=== PATIENT | female | born 1965 | race Caucasian/White ===

== ENCOUNTER → 2016-07-01 | Outpatient (CLI) | payer SELFPAY ==
--- NOTE | 2016-07-02 09:36 | MR ---
EXAMINATION: MRI of the left shoulder HISTORY: Injury COMPARISON: Radiographs dated 06/19/2016 TECHNIQUE: Multiplanar and multisequence images obtained of the left shoulder without contrast. FINDINGS: The acromion is flat. Moderate acromioclavicular osteoarthritic changes are noted. There i s a trace subacromial fluid. There is a tiny articular sided partial-thickness tear of the distal sweet praspinatus tendon. The infraspinatus and teres minor tendons appear intact. The long head biceps te ndon is present within the bicipital groove. The subscapularis tendon appears intact. Mild subcortic al cystic changes noted at the rotator cuff insertion. The articular surfaces are preserved. No susp icious bone marrow signal changes. The inferior glenohumeral ligament appears intact. No joint effus ion. IMPRESSION: 1. Tiny partial-thickness tear of the distal supraspinatus tendon. 2. Mild supraspinatus and subscapularis tendinopathy. 3. Moderate acromioclavicular osteoarthritic changes.
== END ==
LOC: MW.MRI 14:13
PROVIDERS: ATTEND Physician Assistant
DX: S49.92XA Unspecified injury of left shoulder and upper arm, initial encounter (principal)
CPT/HCPCS: 73221-26-LT; 73221-LT

== ENCOUNTER 2017-12-18 11:51 | Emergency (ER) | payer SELFPAY ==
[2017-12-18] MEDS ORDERED: Sodium Chloride 0.9% 1,000 ML IV ONE (12:14)
[2017-12-18] MEDS ORDERED: Sodium Chloride 0.9% 2.5 ML Syringe FLUSH PRN (12:14)
[2017-12-18] MEDS ORDERED: Sodium Chloride 0.9% 10 ML Syringe FLUSH PRN (12:14)
--- NOTE | 2017-12-18 12:35 | EDM.PDOC ---
ED HPI GENERAL MEDICAL PROBLEM - General Chief Complaint: Abdominal Pain Stated Complaint: PT SPOKE TO NURSE Time Seen by Provider: 12/18/17 12:29 Source of Information: Reports: Patient History Limitations: Reports: No Limitations - History of Present Illness INITIAL COMMENTS - FREE TEXT/NARRATIVE: HISTORY AND PHYSICAL: History of present illness: She is a 52-year-old female here with complaint of upper abdominal pain x 3 days. She reports that she had a knee replacement surgery 3 weeks ago. She was given hydrocodone, aspirin, and celebrex post-op. She believes these were upsetting her stomach so she stopped them 2 days ago. She reports she gets a "bubbling" sensation in her chest and throat and gets an aluminum taste in her mouth. She has had multiple episodes of diarrhea x 3 days. States that her stools are very dark but no jairo blood. Review of systems: As per history of present illness and below otherwise all systems reviewed and negative. Past medical history: As per history of present illness and as reviewed below otherwise noncontributory. Surgical history: As per history of present illness and as reviewed below otherwise noncontributory. Social history: No reported history of drug or alcohol abuse. Family history: As per history of present illness and as reviewed below otherwise noncontributory. Physical exam: General: patient sitting comfortably in no acute distress HEENT: Atraumatic, normocephalic, pupils reactive, negative for conjunctival pallor or scleral icterus, mucous membranes moist, throat clear, neck supple, nontender, trachea midline. Lungs: Clear to auscultation, breath sounds equal bilaterally, chest nontender. Heart: S1S2, regular, negative for clicks, rubs, or JVD. Abdomen: Mild epigastric tenderness on exam Soft, nondistended. Negative for masses or hepatosplenomegaly. Negative for costovertebral tenderness. Pelvis: Stable nontender. Genitourinary: Deferred. Rectal: Deferred. Extremities: Atraumatic, negative for cords or calf pain. Neurovascular unremarkable. Neuro: Awake, alert, oriented. Cranial nerves II through XII unremarkable. Cerebellum unremarkable. Motor and sensory unremarkable throughout. Exam nonfocal. Notes: Patient reports improvement in pain with famotidine and zofran Diagnostics: CBC, CMP, troponin, amylase, lipase CT abdomen/pelvis w/ contrast Hemoccult - negative Therapeutics: 1 L normal saline 2mg Morphine IV 20mg Famotidine IV 4mg Zofran IV Impression: Acute Gastritis Plan: 1. Take prilosec daily and zofran as needed for nausea 2. Discontinue celebrex, you may continue aspirin for DVT prophylaxis and hydrocodone for pain. No OTC NSAIDs such as motrin/ibuprofen 3. Follow up with primary care provider 4. Return to ED as needed as discussed Definitive disposition and diagnosis as appropriate pending reevaluation and review of above. Upper Abdomen Pain Score (Numeric/FACES): 6 - Related Data Allergies Allergy/AdvReac Type Severity Reaction Status Date / Time banana Allergy Airway Verified 12/18/17 12:08 Tightness cefaclor Allergy Hives Verified 12/18/17 12:08 codeine Allergy Hives Verified 12/18/17 12:08 divalproex sodium Allergy Itching Verified 12/18/17 12:08 Latex, Natural Rubber Allergy Hives Verified 12/18/17 12:08 loracarbef [From Lorabid] Allergy Hives Verified 12/18/17 12:08 Penicillins Allergy Anaphylactic Verified 12/18/17 12:08 Shock trimethobenzamide HCl Allergy Hives Verified 12/18/17 12:08 [From Tigan] [place] anticeptic powder Allergy Hives Uncoded 12/18/17 12:08 Home Meds: Home Meds Escitalopram Oxalate 10 mg PO DAILY 07/11/15 [History] LORazepam 0.5 mg PO TID PRN 07/11/15 [History] Oxymetazoline [Afrin Original 0.05% Nasal [place]] 1 spray NASBOTH ASDIRECTED PRN 07/11/15 [History] Cetirizine [ZyrTEC] 10 mg PO ASDIRECTED PRN 04/16/16 [History] Promethazine HCl 25 mg PO ASDIRECTED PRN 04/16/16 [History] Omeprazole 20 mg PO BIDAC #60 cap.cr 04/19/16 [Rx] Rizatriptan Benzoate [Rizatriptan] 5 mg PO ASDIRECTED PRN 11/19/17 [History] Topiramate 25 mg PO BID 11/19/17 [History] Omeprazole 20 mg PO DAILY #20 cap.sr 12/18/17 [Rx] Ondansetron [Zofran ODT] 4 mg PO TID PRN #10 tab.dis 12/18/17 [Rx] Past Medical History HEENT History: Reports: Allergic Rhinitis, Other (See Below) Other HEENT History: wears glasses Cardiovascular History: Reports: Other (See Below) Other Cardiovascular History: states has had palpitations Respiratory History: Reports: Asthma Gastrointestinal History: Reports: GERD, Irritable Bowel Syndrome Genitourinary History: Reports: None ASSISTANT DIRECTOR OF NURSING History: Reports: Musculoskeletal History: Reports: Fracture, Fibromyalgia, Osteoarthritis Other Musculoskeletal History: hx of fx ribs, wrist and fingers - no hardware Neurological History: Reports: Concussion, Migraines, Other (See Below) Other Neuro History: hx of motion sickness Psychiatric History: Reports: Anxiety, Depression, Panic Attack Other Psychiatric History: panic disorder Endocrine/Metabolic History: Reports: Obesity/BMI 30+ Hematologic History: Reports: Anemia Immunologic History: Reports: None Other Immunologic History: lupus Oncologic (Cancer) History: Reports: None Dermatologic History: Reports: Other (See Below) Other Dermatologic History: rash on face - Infectious Disease History Infectious Disease History: Reports: None - Past Surgical History HEENT Surgical History: Reports: Adenoidectomy, Oral Surgery, Tonsillectomy Other HEENT Surgeries/Procedures: wisdom teeth removed GI Surgical History: Reports: Appendectomy, Cholecystectomy Female Surgical History: Reports: Section Other Female Surgeries/Procedures: x3 Neurological Surgical History: Reports: C-Spine, Vertebroplasty Other Neurological Surgeries/Procedures: states has "4 donor vertebrate" in neck Musculoskeletal Surgical History: Reports: Arthroscopic Knee, Knee Replacement, Other (See Below) Other Musculoskeletal Surgeries/Procedures:: hx of left knee arthroscopy and right ACL repair Social & Family History - Family History Family Medical History: Noncontributory - Tobacco Use Smoking Status *Q: Never Smoker Second Hand Smoke Exposure: No - Caffeine Use Caffeine Use: Reports: None - Recreational Drug Use Recreational Drug Use: No ED ROS GENERAL - Review of Systems Review Of Systems: ROS reveals no pertinent complaints other than HPI. ED EXAM, GI/ABD - Physical Exam Exam: See Below (see dictation) Course - Vital Signs Last Recorded V/S: Last Vital Signs Temp 36.1 C 12/18/17 12:01 Pulse 79 12/18/17 12:01 Resp 18 12/18/17 12:01 BP 132/70 12/18/17 12:01 Pulse Ox 99 12/18/17 12:01 - Orders/Labs/Meds Orders: Active Orders 24 hr Category Date Time Status Abdomen Pelvis wo Cont [CT] Stat Exams 12/18/17 12:28 Taken HCG QUALITATIVE,URINE [URCHEM] Stat Lab 12/18/17 13:09 Ordered UA W/MICROSCOPIC [URIN] Stat Lab 12/18/17 13:09 Ordered Sodium Chloride 0.9% [Saline Flush] Med 12/18/17 12:14 Active 10 ml FLUSH ASDIRECTED PRN Sodium Chloride 0.9% [Saline Flush] Med 12/18/17 12:14 Active 2.5 ml FLUSH ASDIRECTED PRN Saline Lock Insert [OM.PC] Stat Oth 12/18/17 12:14 Ordered Medication Orders Sodium Chloride (Saline Flush) 10 ml FLUSH ASDIRECTED PRN PRN Reason: Keep Vein Open Sodium Chloride (Saline Flush) 2.5 ml FLUSH ASDIRECTED PRN PRN Reason: Keep Vein Open Labs: Laboratory Tests 12/18/17 12/18/17 12/18/17 Range/Units 12:35 12:35 12:35 WBC 9.16 (4.0-11.0) K/uL RBC 4.27 L (4.30-5.90) M/uL Hgb 12.7 (12.0-16.0) g/dL Hct 38.3 (36.0-46.0) % MCV 89.7 (80.0-98.0) fL MCH 29.7 (27.0-32.0) pg MCHC 33.2 (31.0-37.0) g/dL RDW Std Deviation 44.4 (28.0-62.0) fl RDW Coeff of Pao 14 (11.0-15.0) % Plt Count 523 H (150-400) K/uL MPV 9.00 (7.40-12.00) fL Neut % (Auto) 67.6 (48.0-80.0) % Lymph % (Auto) 24.6 (16.0-40.0) % [place] % (Auto) 6.6 (0.0-15.0) % Eos % (Auto) 0.9 (0.0-7.0) % Baso % (Auto) 0.3 (0.0-1.5) % Neut # (Auto) 6.2 H (1.4-5.7) K/uL Lymph # (Auto) 2.3 (0.6-2.4) K/uL [place] # (Auto) 0.6 (0.0-0.8) K/uL Eos # (Auto) 0.1 (0.0-0.7) K/uL Baso # (Auto) 0.0 (0.0-0.1) K/uL Nucleated RBC % 0.0 /100WBC Nucleated RBCs # 0 K/uL INR 0.98 Sodium 141 (136-145) mmol/L Potassium 3.3 L (3.5-5.1) mmol/L Chloride 105 (98-107) mmol/L Carbon Dioxide 22.4 (21.0-32.0) mmol/L BUN 10 (7.0-18.0) mg/dL Creatinine 0.9 (0.6-1.0) mg/dL Est Cr Clr Drug Dosing 64.58 mL/min Estimated GFR (MDRD) > 60.0 ml/min Glucose 120 H (74-106) mg/dL Calcium 10.0 (8.5-10.1) mg/dL Total Bilirubin 0.4 (0.2-1.0) mg/dL AST 15 (15-37) IU/L ALT 24 (14-63) IU/L Alkaline Phosphatase 107 (46-116) U/L Troponin I < 0.050 (0.000-0.056) ng/mL Total Protein 8.0 (6.4-8.2) g/dL Albumin 4.0 (3.4-5.0) g/dL Globulin 4.0 H (2.0-3.5) g/dL Albumin/Globulin Ratio 1.0 L (1.3-2.8) Amylase 38 (25-115) U/L Lipase 187 (73-393) U/L Urine Color Urine Appearance Urine pH (5.0-8.0) Ur Specific [place] (1.001-1.035) Urine Protein (NEGATIVE) mg/dL Urine Glucose (UA) (NEGATIVE) mg/dL Urine Ketones (NEGATIVE) mg/dL Urine Occult Blood (NEGATIVE) Urine Nitrite (NEGATIVE) Urine Bilirubin (NEGATIVE) Urine Urobilinogen (<2.0) EU/dL Ur Leukocyte Esterase (NEGATIVE) Urine RBC (0-2/HPF) Urine WBC (0-5/HPF) Ur Epithelial Cells (NONE-FEW) Urine Bacteria (NEGATIVE) Urine HCG, Qual (NEGATIVE) 12/18/17 12/18/17 Range/Units 13:09 13:09 WBC (4.0-11.0) K/uL RBC (4.30-5.90) M/uL Hgb (12.0-16.0) g/dL Hct (36.0-46.0) % MCV (80.0-98.0) fL MCH (27.0-32.0) pg MCHC (31.0-37.0) g/dL RDW Std Deviation (28.0-62.0) fl RDW Coeff of Pao (11.0-15.0) % Plt Count (150-400) K/uL MPV (7.40-12.00) fL Neut % (Auto) (48.0-80.0) % Lymph % (Auto) (16.0-40.0) % [place] % (Auto) (0.0-15.0) % Eos % (Auto) (0.0-7.0) % Baso % (Auto) (0.0-1.5) % Neut # (Auto) (1.4-5.7) K/uL Lymph # (Auto) (0.6-2.4) K/uL [place] # (Auto) (0.0-0.8) K/uL Eos # (Auto) (0.0-0.7) K/uL Baso # (Auto) (0.0-0.1) K/uL Nucleated RBC % /100WBC Nucleated RBCs # K/uL INR Sodium (136-145) mmol/L Potassium (3.5-5.1) mmol/L Chloride (98-107) mmol/L Carbon Dioxide (21.0-32.0) mmol/L BUN (7.0-18.0) mg/dL Creatinine (0.6-1.0) mg/dL Est Cr Clr Drug Dosing mL/min Estimated GFR (MDRD) ml/min Glucose (74-106) mg/dL Calcium (8.5-10.1) mg/dL Total Bilirubin (0.2-1.0) mg/dL AST (15-37) IU/L ALT (14-63) IU/L Alkaline Phosphatase (46-116) U/L Troponin I (0.000-0.056) ng/mL Total Protein (6.4-8.2) g/dL Albumin (3.4-5.0) g/dL Globulin (2.0-3.5) g/dL Albumin/Globulin Ratio (1.3-2.8) Amylase (25-115) U/L Lipase (73-393) U/L Urine Color YELLOW Urine Appearance CLEAR Urine pH 6.5 (5.0-8.0) Ur Specific [place] <= 1.005 (1.001-1.035) Urine Protein NEGATIVE (NEGATIVE) mg/dL Urine Glucose (UA) NEGATIVE (NEGATIVE) mg/dL Urine Ketones NEGATIVE (NEGATIVE) mg/dL Urine Occult Blood TRACE-INTACT (NEGATIVE) Urine Nitrite NEGATIVE (NEGATIVE) Urine Bilirubin NEGATIVE (NEGATIVE) Urine Urobilinogen 0.2 (<2.0) EU/dL Ur Leukocyte Esterase NEGATIVE (NEGATIVE) Urine RBC 0-2 (0-2/HPF) Urine WBC 0-1 (0-5/HPF) Ur Epithelial Cells RARE (NONE-FEW) Urine Bacteria RARE (NEGATIVE) Urine HCG, Qual NEGATIVE (NEGATIVE) Meds: Medications Generic Name Dose Route Start Last Admin Trade Name Norma PRN Reason Stop Dose Admin Sodium Chloride 10 ml 12/18/17 12:14 Saline Flush FLUSH ASDIRECTED PRN Keep Vein Open Sodium Chloride 2.5 ml 12/18/17 12:14 Saline Flush FLUSH ASDIRECTED PRN Keep Vein Open Discontinued Medications Generic Name Dose Route Start Last Admin Trade Name Norma PRN Reason Stop Dose Admin Famotidine 20 mg 12/18/17 14:46 12/18/17 15:14 Pepcid IVPUSH 12/18/17 14:47 20 mg ONETIME ONE Administration Sodium Chloride 1,000 mls @ 999 mls/hr 12/18/17 12:14 12/18/17 12:48 Normal Saline IV 12/18/17 13:14 999 mls/hr STAT ONE Administration Morphine Sulfate 2 mg 12/18/17 12:43 12/18/17 12:49 Morphine IVPUSH 12/18/17 12:44 2 mg ONETIME ONE Administration Ondansetron HCl 4 mg 12/18/17 14:46 12/18/17 15:14 Zofran IVPUSH 12/18/17 14:47 4 mg ONETIME ONE Administration Departure - Departure Time of Disposition: 15:41 Disposition: Home, Self-Care 01 Condition: Good Clinical Impression: Gastritis - Discharge Information Prescriptions: Omeprazole 20 mg PO DAILY #20 cap.sr Ondansetron [Zofran ODT] 4 mg PO TID PRN #10 tab.dis PRN Reason: Nausea/Vomiting Referrals: PCP,None [Primary Care Provider] - Forms: ED Department Discharge Additional Instructions: The following information is given to patients seen in the emergency department who are being discharged to home. This information is to outline your options for follow-up care. We provide all patients seen in our emergency department with a follow-up referral. The need for follow-up, as well as the timing and circumstances, are variable depending upon the specifics of your emergency department visit. If you don't have a primary care physician on staff, we will provide you with a referral. We always advise you to contact your personal physician following an emergency department visit to inform them of the circumstance of the visit and for follow-up with them and/or the need for any referrals to a consulting specialist. The emergency department will also refer you to a specialist when appropriate. This referral assures that you have the opportunity for follow-up care with a specialist. All of these measure are taken in an effort to provide you with optimal care, which includes your follow-up. Under all circumstances we always encourage you to contact your private physician who remains a resource for coordinating your care. When calling for follow-up care, please make the office aware that this follow-up is from your recent emergency room visit. If for any reason you are refused follow-up, please contact the [facility] Emergency Department at and asked to speak to the emergency department charge nurse. [facility] [address] [place] [id number] [address] 1. Take prilosec daily and zofran as needed for nausea 2. Discontinue celebrex, you may continue aspirin for DVT prophylaxis and hydrocodone for pain. No OTC NSAIDs such as motrin/ibuprofen 3. Follow up with primary care provider 4. Return to ED as needed as discussed - My Orders Last 24 Hours: My Active Orders 12/18/17 12:14 Sodium Chloride 0.9% [Saline Flush] 10 ml FLUSH ASDIRECTED PRN Sodium Chloride 0.9% [Saline Flush] 2.5 ml FLUSH ASDIRECTED PRN Saline Lock Insert [OM.PC] Stat 12/18/17 12:28 Abdomen Pelvis wo Cont [CT] Stat 12/18/17 13:09 HCG QUALITATIVE,URINE [URCHEM] Stat UA W/MICROSCOPIC [URIN] Stat - Assessment/Plan Last 24 Hours: My Active Orders 12/18/17 12:14 Sodium Chloride 0.9% [Saline Flush] 10 ml FLUSH ASDIRECTED PRN Sodium Chloride 0.9% [Saline Flush] 2.5 ml FLUSH ASDIRECTED PRN Saline Lock Insert [OM.PC] Stat 12/18/17 12:28 Abdomen Pelvis wo Cont [CT] Stat 12/18/17 13:09 HCG QUALITATIVE,URINE [URCHEM] Stat UA W/MICROSCOPIC [URIN] Stat
[2017-12-18] MEDS ORDERED: Morphine 2 MG/ML Syringe IVPUSH ONE (12:43)
[2017-12-18 13:29] LABS: CHLORIDE,CL 105 mmol/L (98-107); SODIUM,NA 141 mmol/L (136-145)
[2017-12-18] MEDS ORDERED: Ondansetron 4 MG/2 ML SDV IVPUSH ONE (14:46)
[2017-12-18] MEDS ORDERED: Famotidine 20 MG/2 ML SDV IVPUSH ONE (14:46)
[2017-12-18 16:58] VITALS: BP 123/64
--- NOTE | 2017-12-19 19:20 | CT ---
EXAM DATE: 12/18/17 PATIENT'S AGE: 52 Patient: ROMAINE JERRY Facility: [place], [place] Site . Site : [id number] Study: CT Abdomen/Pelvis [id number]/[id number] 2:02:24 PM Ordering Physician: Doctor Bennett Final Report: INDICATION: Abdominal pain. TECHNIQUE: Contiguous axial images were obtained from the domes of the diaphragm through the pubic symphysis. Intravenous and oral contrast were not administered. 3D rendering, including image post processing was performed on an independent workstation. COMPARISON: CT abdomen pelvis 04/26/2016. FINDINGS: The visualized lower lungs are unremarkable. The unenhanced liver, spleen, pancreas are unremarkable. Left adrenal adenoma is again noted. Right adrenal gland is unremarkable. The unenhanced kidneys, ureters and urinary bladder unremarkable. There is no obstructive uropathy. The uterus and adnexa are unremarkable. There is no abdominal or pelvic ascites. Few scattered diverticular noted in the colon without CT evidence of diverticulitis. The appendix is not identified. There is no CT evidence of appendicitis. IMPRESSION: 1. No acute abnormality on CT abdomen pelvis. 2. Diverticulosis without CT evidence of diverticulitis. 3. Stable left adrenal adenoma. Please note that all CT scans at this facility use dose modulation, iterative reconstruction, and/or weight-based dosing when appropriate to reduce radiation dose to as low as reasonably achievable. Dictated by Peg Garber MD @ Dec 18 2017 2:26PM (Electronic Signature) Report Signed by Proxy. CORKY
== END 2017-12-18 15:45 | disposition home or self-care (01) ==
LOC: MW.ED 11:51
DX: K29.00 Acute gastritis without bleeding (principal); K21.9 Gastro-esophageal reflux disease without esophagitis; F41.9 Anxiety disorder, unspecified; F32.9 Major depressive disorder, single episode, unspecified; Z79.899 Other long term (current) drug therapy; Z88.0 Allergy status to penicillin; Z88.8 Allergy status to other drugs, medicaments and biological substances; Z91.018 Allergy to other foods; Z91.040 Latex allergy status
CPT/HCPCS: 36415; 74176; 80053; 81001; 81025; 82150; 83690; 84484; 85025; 85610; 96361; 96374; 96375; 99284; J2270; J2405; J3490; J7040; 99283

== ENCOUNTER 2018-05-24 13:44 | Emergency (ER) | payer SELFPAY ==
[2018-05-24 13:53] VITALS: BP 113/71
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
--- NOTE | 2018-05-24 14:31 | CR ---
Indication: Fall. Technique: Two views of the left shoulder were obtained. Comparison: None Findings: The humeral head is seated within the glenoid. There is a probable fracture of the left humeral neck. This is not included on this exam. Degenerative changes of the left shoulder identified. Impression: No definite clavicular fracture. Probable proximal left humeral fracture. Dictated by Giselle Chan MD @ May 24 2018 2:28PM Signed by Dr. Giselle Chan @ May 24 2018 2:30PM
--- NOTE | 2018-05-24 14:50 | CR ---
INDICATION: Left arm pain post fall yesterday. TECHNIQUE: Two views of the left humerus. COMPARISON: Today`s left shoulder x-ray. FINDINGS: Acute nondisplaced humeral neck fracture. No dislocation or other abnormality. IMPRESSION: Acute nondisplaced humeral neck fracture. Dictated by Sylvester Rodriguez MD @ May 24 2018 2:48PM Signed by Dr. Sylvester Rodriguez @ May 24 2018 2:50PM
--- NOTE | 2018-05-24 14:50 | CR ---
INDICATION: Fell yesterday. TECHNIQUE: Single AP view of the left shoulder. COMPARISON: Today`s left humerus and clavicle x-rays. FINDINGS: Acute common nondisplaced the humeral neck fracture. No dislocation or other abnormality. IMPRESSION: Acute nondisplaced humeral neck fracture. Dictated by Sylvester Rodriguez MD @ May 24 2018 2:47PM Signed by Dr. Sylvester Rodriguez @ May 24 2018 2:49PM
== END 2018-05-24 15:23 | disposition home or self-care (01) ==
LOC: MW.ED 13:44
DX: S42.215A Unspecified nondisplaced fracture of surgical neck of left humerus, initial encounter for closed fracture (principal); K21.9 Gastro-esophageal reflux disease without esophagitis; F41.9 Anxiety disorder, unspecified; F32.9 Major depressive disorder, single episode, unspecified; E66.9 Obesity, unspecified; Z91.018 Allergy to other foods; Z88.5 Allergy status to narcotic agent; Z91.040 Latex allergy status; Z88.8 Allergy status to other drugs, medicaments and biological substances; Z79.899 Other long term (current) drug therapy; W19.XXXA Unspecified fall, initial encounter
CPT/HCPCS: 73000-26-LT; 73000-LT; 73020-26-LT; 73020-LT; 73060-26-LT; 73060-LT; 99283

== ENCOUNTER 2021-11-23 14:06 | Emergency (ER) | payer SELFPAY ==
[2021-11-23] MEDS ORDERED: Sodium Chloride 0.9% 1,000 ML IV STA (17:30)
[2021-11-23] MEDS ORDERED: Ondansetron 4 MG/2 ML SDV IVPUSH ONE (17:30)
[2021-11-23] MEDS ORDERED: Ketorolac 30 MG/ML SDV IVPUSH ONE (17:30)
[2021-11-23] MEDS ORDERED: LORazepam 2 MG/ML SDV IVPUSH ONE (17:31)
[2021-11-23 20:16] VITALS: BP 113/72; PULSE 68
== END 2021-11-23 20:17 | disposition home or self-care (01) ==
LOC: MW.ED 14:06
DX: U07.1 COVID-19 (principal); E66.9 Obesity, unspecified; Z68.30 Body mass index [BMI] 30.0-30.9, adult; Z91.018 Allergy to other foods; Z88.1 Allergy status to other antibiotic agents; Z88.5 Allergy status to narcotic agent; Z91.040 Latex allergy status; Z88.0 Allergy status to penicillin; Z88.8 Allergy status to other drugs, medicaments and biological substances; Z79.899 Other long term (current) drug therapy
CPT/HCPCS: 87635; 96374; 96375; 99283; J1885; J2060; J2405; J7030; U0002

== ENCOUNTER 2022-06-24 18:38 | Emergency (ER) | payer BC ==
[2022-06-24] MEDS ORDERED: Diphtheria,Pertussis(Acell),Tetanus Vaccine 0.5 ML Syringe IM ONE (18:44)
[2022-06-24] MEDS ORDERED: Lidocaine 1% PF 2 ML SDV INJECT ONE (18:44)
[2022-06-24] MEDS ORDERED: Octyl 2-Cyanoacrylate 1 g/1 mL 1 APPLIC PEN TOP ONE (18:56)
[2022-06-24 20:00] VITALS: BP 131/67; PULSE 71
== END 2022-06-24 19:41 | disposition home or self-care (01) ==
LOC: MW.ED 18:38
DX: S61.012A Laceration without foreign body of left thumb without damage to nail, initial encounter (principal); E66.9 Obesity, unspecified; Z68.30 Body mass index [BMI] 30.0-30.9, adult; Z91.018 Allergy to other foods; Z88.0 Allergy status to penicillin; Z88.6 Allergy status to analgesic agent; Z88.8 Allergy status to other drugs, medicaments and biological substances; Z91.040 Latex allergy status; Z88.1 Allergy status to other antibiotic agents; Z23 Encounter for immunization; W26.0XXA Contact with knife, initial encounter
CPT/HCPCS: 90471; 90715; 99283; A9270